=== PATIENT | female | born 1990 ===

== ENCOUNTER 2018-06-22 07:27 | Inpatient (IN) | payer OTHER ==
[~2018-06-22] VITALS: Ht 160 cm; Wt 59.4 kg
== END 2018-06-24 16:50 | DRG 807 ==
LOC: OBS/DEL 07:27 → LDR 07:57 → OB/GYN 19:12
PROVIDERS: ADMIT Obstetrics & Gynecology
PROC: 10E0XZZ Delivery of Products of Conception, External Approach (ICD-10-PCS; principal; 2018-06-22)
PROC: 10907ZC Drainage of Amniotic Fluid, Therapeutic from Products of Conception, Via Natural or Artificial Opening (ICD-10-PCS; 2018-06-22)
PROC: 0UQMXZZ Repair Vulva, External Approach (ICD-10-PCS; 2018-06-22)
PROC: 3E033VJ Introduction of Other Hormone into Peripheral Vein, Percutaneous Approach (ICD-10-PCS; 2018-06-22)
PROC: 4A1HXCZ Monitoring of Products of Conception, Cardiac Rate, External Approach (ICD-10-PCS; 2018-06-22)
DX: O70.0 First degree perineal laceration during delivery (principal); Z37.0 Single live birth; Z3A.38 38 weeks gestation of pregnancy

== ENCOUNTER 2023-01-29 08:05 | Outpatient (CLI) | payer OTHER | END 2023-01-29 09:55 | disposition home or self-care (01) | LOC: PRENATAL 08:05 | PROVIDERS: ATTEND Obstetrics & Gynecology Maternal & Fetal Medicine | DX: O35.3XX0 Maternal care for (suspected) damage to fetus from viral disease in mother, not applicable or unspecified (principal); Z3A.20 20 weeks gestation of pregnancy ==